=== PATIENT | female | born 1980 | race Caucasian/White ===

== ENCOUNTER 2018-06-10 20:10 | Inpatient (IN) | payer MEDICAID ==
[~2018-06-10] VITALS: Ht 152.4 cm; Wt 74.4 kg
[~2018-06-10 20:10] MED LIST: DOCU-138 PO; IBUP-779 PO
[2018-06-10] MEDS ORDERED: DEXT 5%/LR + PITOCIN 20UNITS/L 1,000 ML IV SCH (21:07)
[2018-06-10] MEDS ORDERED: METHYLERGONOVINE MALEATE 0.2 MG/ML IM PRN (21:15)
[2018-06-10] MEDS ORDERED: LIDOCAINE HCL 1% 20ML VIAL (Pyxis) INJ INFIL SCH (21:15)
[2018-06-10] MEDS ORDERED: NALOXONE HCL 0.4 MG/ML 1ML VIAL IM PRN (21:15)
[2018-06-10] MEDS ORDERED: PREN1TAB78 MT (21:19)
[2018-06-10] MEDS ORDERED: FERR-71 MT (21:19)
[2018-06-10] MEDS ORDERED: RHO(D) IMMUNE GLOBULIN 300 MCG/SYR IM ONE (21:30)
[2018-06-10] MEDS ORDERED: PENICILLIN G POTASSIUM 5 MMU in DEXT 5% WATER 100 ML IV NR (21:30)
[2018-06-10 21:55] LABS: BASOPHILS % 0.5 % (0.0-2.0); CLARITY URINE CLEAR (CLEAR); COLOR URINE YELLOW (YELLOW); EOSINOPHILS % 0.2 % (0.0-5.0); HEMATOCRIT. 33.3 % (36.0-48.0); HEMOGLOBIN. 10.8 g/dL (12.0-16.0); KETONES URINE 4+ (NEGATIVE); LEUKOCYTE ESTERASE URINE 1+ (NEGATIVE); LYMPHOCYTES % 13.4 % (20.0-50.0); MEAN CORPUSCULAR HEMOGLOBIN 26.4 pg (28.0-32.0); MEAN CORPUSCULAR VOLUME 81.7 fL (81.0-99.0); MEAN PLATELET VOLUME 11.4 fl (7.4-10.4); MONOCYTES % 5.5 % (2.0-8.0); NEUTROPHILS % 80.4 % (40.0-76.0); NITRITE URINE NEGATIVE (NEGATIVE); OCCULT BLOOD URINE NEGATIVE (NEGATIVE); PLATELET 197 x1000/uL (130-400); PROTEIN URINE NEGATIVE (NEGATIVE); RED BLOOD CELL COUNT 4.07 mill/uL (4.2-5.4); RED CELL DISTRIBUTION WIDTH 15.6 % (11.6-14.6); UROBILINOGEN URINE 0.2 E.U./dL (0.2-1.0)
[2018-06-10] MEDS: LACTATED RINGERS 1,000 ML IV SCH (21:57)
[2018-06-10 22:03] LABS: INR 0.9; PARTIAL THROMBOPLASTIN TIME 24.1 sec (23.4-31.0)
[2018-06-10 22:04] LABS: *BARBITURATES SCREEN URINE NEGATIVE (NEGATIVE); *BENZODIAZEPINES SCREEN URINE NEGATIVE (NEGATIVE)
[2018-06-10 22:05] LABS: *AMPHETAMINES SCREEN URINE NEGATIVE (NEGATIVE); *COCAINE SCREEN URINE NEGATIVE (NEGATIVE); CANNABINOID URINE SCREEN NEGATIVE (NEGATIVE); METHADONE URINE SCREEN NEGATIVE (NEGATIVE); OPIATES URINE SCREEN NEGATIVE (NEGATIVE); PHENCYCLIDINE URINE SCREEN NEGATIVE (NEGATIVE)
[2018-06-10 22:42] LABS: HEPATITIS B SURFACE ANTIGEN NEGATIVE
[2018-06-10] MEDS: BUTORPHANOL TARTRATE 2 MG/ML VIAL IV PRN (23:40)
[2018-06-11] MEDS: LACTATED RINGERS 1,000 ML IV SCH ×3 (01:41→19:00)
[2018-06-11] MEDS: PENICILLIN G POTASSIUM 2.5 MMU in DEXTROSE 5% WATER 50 ML IV SCH ×2 (02:10→06:10)
[2018-06-11] MEDS: BUTORPHANOL TARTRATE 2 MG/ML VIAL IV PRN (13:06)
[2018-06-11] MEDS ORDERED: DEXT 5%/LR + PITOCIN 20UNITS/L 1,000 ML IV SCH (21:46)
[2018-06-11 22:00] VITALS: BP 98/55
[2018-06-11] MEDS ORDERED: IBUPROFEN 400MG TABLET PO PRN (22:00)
[2018-06-11] MEDS ORDERED: RHO(D) IMMUNE GLOBULIN 300 MCG/SYR IM PRN (22:00)
[2018-06-11] MEDS ORDERED: METHYLERGONOVINE MALEATE 0.2 MG/ML IM PRN (22:00)
[2018-06-11] MEDS ORDERED: LANOLIN OINT 0.25 GM TUBE TOP PRN (22:00)
[2018-06-11] MEDS ORDERED: DIPHENHYDRAMINE 25MG CAPSULE PO PRN (22:00)
[2018-06-11 22:30] VITALS: BP 106/77
[2018-06-11] MEDS: IBUPROFEN 800MG TABLET PO PRN (22:45)
[2018-06-11 23:00] VITALS: BP 112/63
[2018-06-12] VITALS (7 sets, daily range): BP systolic 92–112; BP diastolic 51–83
[2018-06-12] MEDS: IBUPROFEN 800MG TABLET PO PRN ×2 (06:20→19:37)
[2018-06-12 07:13] LABS: EOSINOPHILS % 0.1 % (0.0-5.0); HEMATOCRIT. 24.3 % (36.0-48.0); HEMOGLOBIN. 7.9 g/dL (12.0-16.0); LYMPHOCYTES % 10.2 % (20.0-50.0); MEAN CORPUSCULAR HEMOGLOBIN 26.6 pg (28.0-32.0); MEAN CORPUSCULAR VOLUME 82.2 fL (81.0-99.0); MEAN PLATELET VOLUME 10.8 fl (7.4-10.4); MONOCYTES % 10.2 % (2.0-8.0); NEUTROPHILS % 79.5 % (40.0-76.0); PLATELET 171 x1000/uL (130-400); RED BLOOD CELL COUNT 2.95 mill/uL (4.2-5.4); RED CELL DISTRIBUTION WIDTH 15.8 % (11.6-14.6)
[2018-06-12] MEDS ORDERED: BISACODYL 5MG TABLET PO PRN (11:45)
[2018-06-12] MEDS: PRENATAL VIT/FE FUMARATE/FA TABLET PO SCH (12:43)
[2018-06-13 09:00] VITALS: BP 104/58
[2018-06-13] MEDS: PRENATAL VIT/FE FUMARATE/FA TABLET PO SCH (09:27)
[2018-06-13] MEDS: IBUPROFEN 800MG TABLET PO PRN (09:30)
== END 2018-06-13 15:40 | disposition home or self-care (01) | DRG 560 ==
LOC: INTOOBSV 20:10 → OBSVTOIN 20:10 → 8 EST LDRP 20:10 → 8EST 06-11 22:00
PROVIDERS: ADMIT Obstetrics & Gynecology; ATTEND Obstetrics & Gynecology
PROC: 10E0XZZ Delivery of Products of Conception, External Approach (ICD-10-PCS; principal; 2018-06-11)
PROC: 0KQM0ZZ Repair Perineum Muscle, Open Approach (ICD-10-PCS; 2018-06-11)
PROC: 3E0234Z Introduction of Serum, Toxoid and Vaccine into Muscle, Percutaneous Approach (ICD-10-PCS; 2018-06-13)
DX: O77.0 Labor and delivery complicated by meconium in amniotic fluid (principal); D62 Acute posthemorrhagic anemia; O99.02 Anemia complicating childbirth; O70.1 Second degree perineal laceration during delivery; O26.893 Other specified pregnancy related conditions, third trimester; Z67.21 Type B blood, Rh negative; Z3A.39 39 weeks gestation of pregnancy; Z37.0 Single live birth
CPT/HCPCS: 36415; 76815; 80305; 86592; 86703; 86762; 86850; 86870; 86886; 86900; 87340; 90384; 99281; J0595; J2540; J2590; J3490; J7060; J7120